=== PATIENT | male | born 1990 | race African-American/Black ===

== ENCOUNTER 2021-03-17 20:35 | Emergency (ER) | payer OTHER ==
[~2021-03-17] VITALS: Ht 182.9 cm; Wt 77.0 kg
[2021-03-17 20:37] VITALS: BP 101/72
[2021-03-17] MEDS ORDERED: ONDANSETRON 4MG ODT PO ONE (21:45)
== END 2021-03-17 22:51 | disposition left against medical advice (07) ==
LOC: ER 21:11
DX: Z53.21 Procedure and treatment not carried out due to patient leaving prior to being seen by health care provider (principal); R43.8 Other disturbances of smell and taste; R11.10 Vomiting, unspecified

== ENCOUNTER 2021-09-23 03:21 | Emergency (ER) | payer MEDICAID, OTHER ==
[~2021-09-23] VITALS: Ht 175.3 cm; Wt 64.2 kg
[2021-09-23 03:24] VITALS: BP 118/78
== END 2021-09-23 03:40 | disposition home or self-care (01) ==
LOC: ER 03:21
DX: F41.9 Anxiety disorder, unspecified (principal); F15.10 Other stimulant abuse, uncomplicated
CPT/HCPCS: 93005; 99283

== ENCOUNTER 2022-09-27 05:31 | Emergency (ER) | payer MEDICAID ==
[~2022-09-27] VITALS: Ht 190.5 cm; Wt 80.8 kg
[2022-09-27 05:43] VITALS: BP 102/68
[2022-09-27 09:35] LABS: CLARITY URINE TURBID (CLEAR); COLOR URINE YELLOW (YELLOW); KETONES URINE TRACE (NEGATIVE); LEUKOCYTE ESTERASE URINE 3+ (NEGATIVE); NITRITE URINE NEGATIVE (NEGATIVE); OCCULT BLOOD URINE TRACE (NEGATIVE); PH URINE 6.5 (4.5-8.0); PROTEIN URINE 1+ (NEGATIVE); SPECIFIC GRAVITY URINE 1.028 (1.005-1.030)
== END 2022-09-27 07:43 | disposition left against medical advice (07) ==
LOC: ER 05:51
DX: F15.10 Other stimulant abuse, uncomplicated (principal); Z86.59 Personal history of other mental and behavioral disorders
CPT/HCPCS: 81003; 87077; 99283